=== PATIENT | male | born 1990 | race Two or more races ===

== ENCOUNTER 2017-03-15 20:52 | Emergency (ER) | payer BC ==
[~2017-03-15] VITALS: Ht 172.7 cm; Wt 73.5 kg
[2017-03-15] MEDS ORDERED: Haloperidol 5mg/ml Inj IM ONE (21:00)
[2017-03-15] MEDS ORDERED: ZOFRAN4 MG ORAL (21:18)
[2017-03-15 22:38] VITALS: BP 130/78
--- NOTE | 2017-03-18 09:03 | Emergency Room Report ---
History of Present Illness General Chief Complaint: Substance Abuse Source: Patient, EMS Present Illness HPI The patient is a 26-year-old male presented by EMS with a girlfriend after increased nausea and vomiting. The patient had recently ingested a marijuana edible. He was noted to have vomiting foodstuff. He denied any pain. Patient denies any pain. He was given Zofran by EMS. Allergies: Coded Allergies: No Known Allergies (Unverified , 03/15/17) Patient History Past Medical History: see triage record Reviewed Nursing Documentation: PMH: Agreed, PSxH: Agreed Nursing Documentation-PMH Past Medical History: No Stated History Review of Systems All Other Systems: negative except mentioned in HPI Physical Exam Vital Signs Date Time Temp Pulse Resp B/P (MAP) Pulse Ox O2 Delivery O2 Flow Rate FiO2 03/15/17 20:48 97.5 98 16 130/78 97 Room Air General Appearance: well appearing, no apparent distress, alert, GCS 15 Head: normocephalic, atraumatic ENT: hearing grossly normal, normal voice Neck: full range of motion, supple Respiratory: no respiratory distress, speaking full sentences Cardiovascular #1: normal inspection, regular rate, rhythm Musculoskeletal: normal inspection, back normal, no calf tenderness Neurologic: normal inspection, alert, oriented x3, responsive, executive consultant III-XII nml as tested, normal gait, other - patient is not lethargic, easily arousible to verbal stimuli Psychiatric: normal inspection, mood/affect normal Skin: no rash Medical Decision Making Diagnostic Impression: Primary Impression: Substance abuse Additional Impression: Vomiting ER Course Patient presented for vomiting. Differential diagnosis included was not limited to marijuana hyperemesis,, gastroenteritis, bowel obstruction, appendicitis among others. Patient's benign exam and does not appear to require any further imaging or laboratory testing at this time. The patient was given IV fluids as well as IM Haldol. Patient improvement in symptoms.Patient was discharged home with responsible alliance party. The patient is advised to follow up with primary care doctor in 1-2 days. Patient is advised to return if any worsening condition or if any changes in status that are concerning. This report is dictated with [employer] viner operator software which may occasionally lead to discrepancies related to use of this software. Last Vital Signs Date Time Temp Pulse Resp B/P (MAP) Pulse Ox O2 Delivery O2 Flow Rate FiO2 03/15/17 22:38 97.5 16 130/78 97 Room Air 12/8/17 20:48 98 Status: improved Disposition: HOME, SELF-CARE Condition: Stable Scripts Ondansetron (Zofran) 4 Mg Tablet 4 MG ORAL Q6H Y for Nausea & Vomiting, #10 TAB 0 Refills Prov: Adrian Werner 03/15/17 Referrals: NOT CHOSEN IPA/MD,REFERRING (PCP) Patient Instructions: Cannabis Use Disorder Adrian Werner Mar 18, 2017 09:03
== END 2017-03-15 22:39 | disposition home or self-care (01) ==
LOC: EDBD 20:52 → EMR 21:57
DX: R11.10 Vomiting, unspecified (principal); F12.10 Cannabis abuse, uncomplicated
CPT/HCPCS: 96372; 96374; 99284; J1630